=== PATIENT | female | born 1985 | race Caucasian/White ===

== ENCOUNTER 2017-08-03 16:42 | Emergency (ER) | payer BC ==
[~2017-08-03] VITALS: Ht 162.6 cm; Wt 47.6 kg
[2017-08-03 17:18] LABS: BILIRUBIN,URINE NEGATIVE (NEG); GLUCOSE,URINE NEGATIVE (NEG); NITRITE,URINE NEGATIVE (NEG); PROTEIN,URINE 30 mg/dL (NEG-TRACE); UROBILINOGEN,URINE 0.2 mg/dL (0.2 mg/dL)
[2017-08-03 17:25] LABS: BACTERIA,URINE FEW /HPF (0-FEW); SQUAMOUS EPITHELIAL CELL,UR MOD /LPF; WBC,URINE OCC /HPF (0-4)
--- NOTE | 2017-08-03 18:49 | RAD ---
Pelvic ultrasound dated 08/03/2017. No comparison available. CLINICAL INDICATION: Pelvic pain. FINDINGS: Transabdominal pelvic ultrasound was performed. Uterus measures 9.1 x 6.6 x 4.3 cm. No focal uterine mass. Endometrial complex normal in thickness for age measuring 8 mm. Right ovary measures 5.0 x 3.4 x 3.1 cm. Left ovary measures 5.8 x 3.2 x 3.2 cm. Small simple cyst or dominant follicle the right ovary measures 2.1 cm maximum dimension. Small amount of free pelvic fluid. Impression: 1. No acute sonographic abnormality. 2. Small amount of free pelvic fluid, nonspecific. 3. Simple cyst or dominant follicle at the right ovary measuring 2.1 cm in size. Electronically signed by: Nitesh Marroquin MD (08/03/2017 6:45 PM) [facility]
[2017-08-03 19:00] VITALS: BP 106/54
--- NOTE | 2017-08-03 19:18 | PHYS DOC ---
Past Medical History Past Medical History: No Pertinent History Past Surgical History: Appendectomy Alcohol Use: None Drug Use: None Adult General Chief Complaint Chief Complaint: ABDOMINAL PAIN HPI HPI Patient is a 31 year old female who presents with pelvic pain. The patient reports left sided pelvic pain. Denies any associated symptoms including fever/ chills, nausea/vomiting, diarrhea/constipation, dysuria/hematuria, vaginal bleeding/discharge. She denies history of previous similar symptoms. She has not had a menstrual period since giving to her son 1 year ago. Previously healthy, history of appendectomy. Review of Systems Review of Systems Constitutional: Denies fever or chills HENT: Denies nasal congestion or sore throat Respiratory: Denies cough or shortness of breath Cardiovascular: Denies chest pain GI: Reports abdominal pain, denies nausea, vomiting, or diarrhea : Denies dysuria or hematuria Musculoskeletal: Denies back pain or joint pain Integument: Denies rash Neurologic: Denies headache Allergies Allergies Allergies Coded Allergies Type Severity Reaction Last Updated Verified No Known Drug Allergies 08/03/17 No Physical Exam Physical Exam Constitutional: Well developed, well nourished, no acute distress, non-toxic appearance. HENT: Normocephalic, atraumatic, bilateral external ears normal, oropharynx moist, nose normal. Eyes: conjunctiva normal, no discharge. Neck: supple, no stridor. Cardiovascular: RRR, no murmurs, no edema. Lungs & Thorax: LCTAB, no wheezing, no respiratory distress. Abdomen: soft, mild LLQ tenderness without rebound/guarding, no masses or pulsatile masses, nondistended. : normal female external genitalia, normal appearing cervix with closed os, no blood or discharge, no CMT/adnexal tenderness. Skin: Warm, dry, no erythema, no rash. Back: No CVA tenderness. Extremities: No tenderness, no edema. Neurologic: Alert and oriented X 3, no focal deficits noted. Psychologic: Affect normal, judgement normal, mood normal. Current Patient Data Vital Signs Vital Signs Date Time Temp Pulse Resp B/P (MAP) Pulse Ox O2 Delivery O2 Flow Rate FiO2 08/03/17 19:00 62 16 106/54 (71) 100 Room Air 08/03/17 16:55 98.0 98.0 Lab Values Laboratory Tests Test 08/03/17 16:55 08/03/17 17:00 POC Urine HCG, Qualitative Hcg negative (Negative) Urine Collection Type Unknown Urine Color Yellow Urine Clarity Clear Urine pH 6.0 Urine Specific [place] 1.025 Urine Protein 30 mg/dL (NEG-TRACE) Urine Glucose (UA) Negative mg/dL (NEG) Urine Ketones (Stick) Negative mg/dL (NEG) Urine Blood Trace (NEG) Urine Nitrite Negative (NEG) Urine Bilirubin Negative (NEG) Urine Urobilinogen Dipstick 0.2 mg/dL (0.2 mg/dL) Urine Leukocyte Esterase Negative (NEG) Urine RBC 6-10 /HPF (0-2) Urine WBC Occ /HPF (0-4) Urine Squamous Epithelial Cells Mod /LPF Urine Bacteria Few /HPF (0-FEW) Urine Mucus Mod /LPF Microbiology 08/03/17 Wet Prep - Final, Complete EKG EKG [] Radiology/Procedures Radiology/Procedures PROCEDURE: PELVIS COMPLETE Pelvic ultrasound dated 08/03/2017. No comparison available. CLINICAL INDICATION: Pelvic pain. FINDINGS: Transabdominal pelvic ultrasound was performed. Uterus measures 9.1 x 6.6 x 4.3 cm. No focal uterine mass. Endometrial complex normal in thickness for age measuring 8 mm. Right ovary measures 5.0 x 3.4 x 3.1 cm. Left ovary measures 5.8 x 3.2 x 3.2 cm. Small simple cyst or dominant follicle the right ovary measures 2.1 cm maximum dimension. Small amount of free pelvic fluid. Impression: 1. No acute sonographic abnormality. 2. Small amount of free pelvic fluid, nonspecific. 3. Simple cyst or dominant follicle at the right ovary measuring 2.1 cm in size. Electronically signed by: Jewel Marroquin MD (08/03/2017 6:45 PM) [facility] DICTATED and SIGNED BY: JEWEL MARROQUIN MD DATE: 08/03/17 184[] Course & Med Decision Making Course & Med Decision Making Pertinent Labs and Imaging studies reviewed. (See chart for details) The patient presents with pelvic pain. She declined pain medication. Obtained UA, performed pelvic exam, obtained US. No serious abnormality identified. She felt better, comfortable with discharge home. Recommend rest, hydration, tylenol/ibuprofen for pain. Follow up with primary care physician or gynecology in 2-3 days if not improving. Come back for high fever, severe pain , uncontrolled vomiting, any otherwise worsening condition. Discharged home in stable condition. [] Dragon Disclaimer Dragon Disclaimer This electronic medical record was generated, in whole or in part, using a voice recognition dictation system. Departure Departure Impression: Primary Impression: Pelvic pain Disposition: HOME, SELF-CARE Condition: STABLE Referrals: JEWEL NAVA MD (PCP) Patient Instructions: Pelvic Pain, Female, [id number] Additional Instructions: You were seen in the emergency department today for pelvic pain. Tests here did not show any serious cause of symptoms. Please rest, drink fluids, take Tylenol or ibuprofen for pain. Follow-up with your doctor in 2-3 days if symptoms continue. Return to the emergency department for high fever, severe pain, uncontrolled vomiting, any otherwise worsening condition. CARLA ZIMMEMRAN MD Aug 03, 2017 19:18
== END 2017-08-03 19:28 | disposition home or self-care (01) ==
LOC: ER 16:42
DX: R10.2 Pelvic and perineal pain (principal); Z90.49 Acquired absence of other specified parts of digestive tract
CPT/HCPCS: 76856; 81001; 81025; 87491; 87591; 99285; Q0111